=== PATIENT | female | born 1950 | race Caucasian/White ===

== ENCOUNTER 2018-12-21 06:53 | Inpatient (IN) | payer OTHER, MEDICARE ==
[~2018-12-21] VITALS: Ht 154.9 cm; Wt 77.1 kg
--- NOTE | 2018-12-21 07:10 | NUR ---
BULLDOZER MECHANIC NOTE RECEIVED PT. PT ARRIVES TO HOSPITAL FOR RIGHT TKA TO BE PERFORMED BY DR. DISLA. ADMISSION TO BE DONE. CONSENT FORMS SIGNED. IV ACCESS TO BE PLACED. AWAITING OR FOR ADDITIONAL PREOP ORDERS/PREP, WILL CONT TO MONITOR.
[2018-12-21 08:00] VITALS: BP 119/71
[2018-12-21 08:48] VITALS: BP 119/71
[2018-12-21] MEDS ORDERED: TRANEXAMIC ACID 3,000 MG in SODIUM CHLORIDE IRRIG SOLUTION 70 ML IR ONE (09:00)
[2018-12-21] MEDS ORDERED: ACETAMINOPHEN 325 MG TABLET PO ONE (10:00)
[2018-12-21] MEDS ORDERED: oxyCODONE IR immediate release 5 MG PO ONE (10:00)
[2018-12-21] MEDS ORDERED: CELECOXIB 100 MG CAPSULE PO ONE (10:00)
[2018-12-21] MEDS ORDERED: ANCEF 1 GM/50 ML D5W IV ONE ×2 (10:00)
[2018-12-21] MEDS ORDERED: MORPHINE SULFATE/PF 10 MG/10ML (1MG/ML) AMPUL ONE (10:54)
[2018-12-21] MEDS ORDERED: SCOPOLAMINE HBR 1 EA PATCH.TD72 TD ONE (10:55)
[2018-12-21] MEDS ORDERED: FENTANYL PF 100MCG/2ML AMPUL ONE (10:55)
[2018-12-21] MEDS ORDERED: BACITRACIN 50000 UNITS/VIAL ONE (11:15)
[2018-12-21] MEDS ORDERED: MIDAZOLAM HCL 2 MG/2ML VIAL ONE (11:15)
[2018-12-21] MEDS ORDERED: LIDOCAINE HCL/PF 1% 30 ML SDV ONE (11:59)
[2018-12-21] MEDS ORDERED: DEXAMETHASONE SOD PHOSPHATE 4 MG/ML VIAL ONE (11:59)
[2018-12-21] MEDS ORDERED: NALOXONE HCL 0.4 MG/ML AMPUL IV PRN (13:30)
[2018-12-21] MEDS ORDERED: diphenhydrAMINE HCL 25 MG CAPSULE PO PRN ×2 (13:30→16:00)
[2018-12-21] MEDS ORDERED: HYDROMORPHONE 1 MG/1 ML DISP.SYRIN IV PRN (13:30)
[2018-12-21] MEDS ORDERED: BISACODYL SUPP (10 MG) 10 MG/SUPP.RECT SUPP.RECT RC PRN (13:30)
[2018-12-21] MEDS ORDERED: HYDROCODONE/APAP 5/325MG 1 EACH TABLET PO PRN (13:30)
[2018-12-21] MEDS ORDERED: DOCUSATE SODIUM 250 MG CAPSULE PO PRN (13:30)
[2018-12-21] MEDS ORDERED: ACETAMINOPHEN 325 MG TABLET PO PRN (13:30)
[2018-12-21] MEDS: IV LR 1000 ML 1,000 ML IV PRN ×2 (14:24→20:28)
[2018-12-21] MEDS ORDERED: BENA1TAB18 PO (15:32)
[2018-12-21 16:00] VITALS: BP 113/53
[2018-12-21] MEDS ORDERED: HYDROMORPHONE 1 MG/1 ML DISP.SYRIN SQ PRN (16:00)
[2018-12-21] MEDS ORDERED: ONDANSETRON HCL/PF 4 MG/2 ML VIAL IV PRN (16:00)
[2018-12-21] MEDS ORDERED: PROMETHAZINE HCL 12.5 MG/SUPP.RECT RC PRN (16:00)
[2018-12-21] MEDS ORDERED: MAG HYDROX/AL HYDROX/SIMETH 30 ML UDC PO PRN (16:00)
[2018-12-21] MEDS ORDERED: oxyCODONE IR immediate release 5 MG PO PRN (16:00)
[2018-12-21] MEDS ORDERED: CLONIDINE HCL 0.1 MG TABLET PO PRN (16:00)
[2018-12-21] MEDS ORDERED: MAGNESIUM HYDROXIDE 30 ML UDC PO PRN (16:00)
[2018-12-21] MEDS ORDERED: ONDANSETRON HCL/PF 4 MG/2 ML VIAL IV ONE (16:22)
[2018-12-21] MEDS ORDERED: PROMETHAZINE HCL 25 MG/SUPP.RECT RC PRN (16:30)
[2018-12-21] MEDS ORDERED: BENAZEPRIL HCL 10 MG TABLET PO SCH (17:00)
[2018-12-21] MEDS: DOCUSATE SODIUM 100 MG CAPSULE PO SCH (17:00)
--- NOTE | 2018-12-21 18:27 | NUR ---
RN CLOSING NOTE PT STABLE. ALL PT NEEDS ANTICIPATED AND MET. SAFETY MEASURES IN PLACE, CALL LIGHT IN REACH. WILL ENDORSE TO PERCH MACHINE INSPECTOR FOR [place].
--- NOTE | 2018-12-21 19:15 | NUR ---
RN PM OPENING NOTES. REPORT RECIEVED FROM RODNYE LARRY. PATIENT SEEN IN BED. IV INFUSIGN TO R WRIST 20 GAUGE WITH NO S/S OF INFILTRATION. REPORTS SENSATION TO BILATERAL FEET. ABLE TO MOVE FET. HAS IMMOBILIZER TO RIGHT LEG. NO SELLLING NOTED. GOOD CAP REFILL BILAT FEET. REVIEWED PAIN MANAGEMENT PLAN WITH PATIENT AND POC QEUSTIONS CONCERNS ADDRESSED. CALL LIGHT IN REACH. BED DOWN LOCKED SRX2 VERBALIZED UNDERSTANDING TO CALL FOR ASSISTANCE NEEDED.
[2018-12-21 20:00] VITALS: BP 112/61
[2018-12-21] MEDS: FAMOTIDINE (20 MG) 20 MG TABLET PO SCH (20:37)
[2018-12-21] MEDS: ANCEF 1 GM/50 ML D5W IV SCH ×2 (20:43)
[2018-12-21] MEDS ORDERED: SENNOSIDES 8.6 MG TABLET PO PRN (22:00)
[2018-12-21] MEDS ORDERED: ZOLPIDEM TARTRATE 5 MG TABLET PO PRN (22:00)
[2018-12-21] MEDS: oxyCODONE IR immediate release 5 MG PO PRN (23:31)
[2018-12-22] VITALS: BP_SYST 110; BP_SYST 83; BP_DIAS 59; BP_DIAS 61
[2018-12-22 04:00] VITALS: BP 109/45
[2018-12-22] MEDS: ANCEF 1 GM/50 ML D5W IV SCH ×2 (04:17)
[2018-12-22 06:36] LABS: BASOPHILS % (AUTO) 0.3 % (0.0-2.0); EOSINOPHILS % (AUTO) 0.2 % (0.0-6.0); HEMATOCRIT 33 % (33-45); HEMOGLOBIN 11.4 g/dL (11.5-14.8); LYMPHOCYTES # (AUTO) 1.3 /CMM (0.8-4.8); LYMPHOCYTES % (AUTO) 12.3 % (20.0-44.0); MEAN CORPUSCULAR HGB CONC 35 g/dl (31.0-36.0); MEAN CORPUSCULAR VOLUME 100 fL (82-100); MONOCYTES # (AUTO) 0.7 /CMM (0.1-1.30); MONOCYTES % (AUTO) 6.6 % (2.0-12.0); NEUTROPHILS # (AUTO) 8.4 /CMM (1.8-8.9); NEUTROPHILS % (AUTO) 80.6 % (43.0-81.0); PLATELET COUNT (AUTO) 257 /CMM (150-450); RED BLOOD CELL COUNT(AUTO) 3.28 MIL/uL (4.0-5.2); WHITE BLOOD COUNT (AUTO) 10.4 K/uL (4.3-11.0)
--- NOTE | 2018-12-22 06:44 | NUR ---
ANURAG COTO CALLED UPDATED ON PATIENT CONDITION. NO NEW ORDERS RECIEVED.
[2018-12-22 06:47] LABS: CALCIUM, SERUM 8.7 mg/dL (8.5-10.1); CREATININE 0.8 mg/dL (0.6-1.3); MAGNESIUM 1.9 mg/dL (1.8-2.4); PHOSPHORUS 4.2 mg/dL (2.5-4.9); POTASSIUM 4.6 mmol/L (3.5-5.1)
--- NOTE | 2018-12-22 07:02 | NUR ---
RN PM CLOSING NOTE PT STABLE. ALL PT NEEDS MET. SAFETY MEASURES IN PLACE, CALL LIGHT IN REACH. WILL ENDORSE TO ALLEY WORKER FOR [place]
[2018-12-22] MEDS: oxyCODONE IR immediate release 5 MG PO PRN ×2 (07:37→14:42)
--- NOTE | 2018-12-22 08:00 | NUR ---
M/S RN NOTES PATIENT AWAKE IN BED, ALERT AND ORIENTED X4, NO RESPIRATORY DISTRESS NOTED. PATIENT COMPLAINING OF PAIN ON THE RT AT 6/10 PAIN. GAVE PAIN MEDICATION ORDERED, WILL REASSESS. SKIN WARM TO TOUCH. IVF OF LR INFUSING ON THE RT WRIST #20G AT 100ML/HR, INTACT AND PATENT, NO REDNESS, NO INFILTRATION NOTED. PATIENT'S NEEDS ATTENDED. BED ON LOWEST LOCKED POSITION, CALL LIGHT WITHIN REACH. WILL CONTINUE TO MONITOR.
[2018-12-22] MEDS: DOCUSATE SODIUM 100 MG CAPSULE PO SCH (08:22)
[2018-12-22] MEDS: FAMOTIDINE (20 MG) 20 MG TABLET PO SCH (08:22)
[2018-12-22] MEDS ORDERED: ASPIRIN 325 MG TABLET PO SCH (09:00)
[2018-12-22] MEDS ORDERED: BENAZEPRIL HCL 20 MG TABLET PO SCH (09:00)
[2018-12-22] MEDS ORDERED: HYDROCHLOROTHIAZIDE 25 MG TABLET PO SCH (09:00)
[2018-12-22] MEDS ORDERED: PSYLLIUM SEED 1 PKT PACKET PO SCH (09:00)
--- NOTE | 2018-12-22 09:40 | NUR ---
M/S RN NOTES F/C REMOVED PRIOR TO PT EVAL, PROCEDURE TOLERATED WELL.
[2018-12-22] MEDS: IV LR 1000 ML 1,000 ML IV PRN (10:24)
[2018-12-22 10:30] VITALS: BP 111/66
--- NOTE | 2018-12-22 14:55 | NUR ---
M/S RN NOTES PATIENT DISCHARGED TODAY IN STABLE CONDITION, VSS, NO RESPIRATORY DISTRESS NOTED. PATIENT C/O PAIN, 8/10 PAIN LEVEL, PAIN MED GIVEN ORDERED. SKIN ASSESSED, NO SKIN BREAKDOWN, SKIN WARM TO TOUCH. PATIENT'S DRESSING CLEAN, DRY AND INTACT. PATIENT'S IV REMOVED AND APPLIED PRESSURE DRESSING. PATIENT GIVEN DISCHARGE INSTRUCTIONS, VERBALIZED UNDERSTANDING. BELONGINGS ACCOUNTED FOR AND SIGNED. PATIENT ESCORTED TO LOBBY BY STAFF AND FAMILY AND LEFT VIA PRIVATE CAR.
== END 2018-12-22 15:45 | disposition home health service (06) | DRG 470 ==
LOC: DS 06:53 → MED 06:57
PROVIDERS: ADMIT Specialist; ATTEND Nurse Practitioner Acute Care
PROC: 0SRC0J9 Replacement of Right Knee Joint with Synthetic Substitute, Cemented, Open Approach (ICD-10-PCS; principal; 2018-12-21)
DX: M17.11 Unilateral primary osteoarthritis, right knee (principal); I10 Essential (primary) hypertension; E66.9 Obesity, unspecified; Z68.32 Body mass index [BMI] 32.0-32.9, adult
CPT/HCPCS: 36415; 80048-TC; 83735-TC; 84100-TC; 85025-TC; 87081-TC; 88305-TC; 88311-TC; 97110-TC; 97116-TC; 97530-TC; 97760-TC; A4217; C1713; G0378; J0690; J1100; J2250; J2274; J2405; J2704; J3010; J3490; J7060; J7120